=== PATIENT | female | born 1975 | race Caucasian/White ===

== ENCOUNTER 2024-11-28 11:48 | Inpatient (IN) | payer OTHER ==
[~2024-11-28] VITALS: Ht 154.9 cm; Wt 105.4 kg
[2024-11-28 12:09] VITALS: O2SAT 98
[2024-11-28 14:12] LABS: BASOPHILS % 0.9 % (0.0-2.0); EOSINOPHILS % 2.8 % (0.0-5.0); HEMATOCRIT. 40.1 % (36.0-48.0); HEMOGLOBIN. 13.7 g/dL (12.0-16.0); LYMPHOCYTES % 23.5 % (20.0-50.0); MEAN PLATELET VOLUME 8.2 fl (7.4-10.4); MONOCYTES % 8.2 % (2.0-8.0); NEUTROPHILS % 64.6 % (40.0-76.0); PLATELET 287 x1000/uL (130-400); RED BLOOD CELL COUNT 4.50 mill/uL (4.2-5.4); RED CELL DISTRIBUTION WIDTH 13.3 % (11.6-14.6)
[2024-11-28 14:27] LABS: CREATININE 0.5 mg/dL (0.6-1.0); UREA NITROGEN BLOOD 11 mg/dL (9-23)
[2024-11-28 14:28] LABS: HCG SCREEN NEGATIVE; TROPONIN I HIGH SENSITIVITY < 4 ng/L (3.0-34)
[2024-11-28] MEDS: KCL 20MEQ/100ML PREMIX 100 ML IV ONE (15:11)
[2024-11-28] MEDS: MAGNESIUM 2 G PREMIX 50 ML IV ONE (15:11)
[2024-11-28] MEDS: POTASSIUM CHLORIDE 20MEQ/PACKET PO ONE (15:12)
[2024-11-28 16:50] LABS: TROPONIN I HIGH SENSITIVITY < 4 ng/L (3.0-34)
[2024-11-28] MEDS ORDERED: MAGNESIUM/ALUMINUM HYDROXIDE/SIMETHICONE 30ML UDC PO PRN (18:00)
[2024-11-28] MEDS ORDERED: ONDANSETRON HCL 4MG/2ML INJ IV PRN (18:00)
[2024-11-28] MEDS ORDERED: CLONIDINE 0.1MG TABLET PO PRN (18:00)
[2024-11-28] MEDS ORDERED: GUAIFENESIN 200MG/10ML SUGAR FREE UDC PO PRN (18:00)
[2024-11-28] MEDS ORDERED: ACETAMINOPHEN 325MG TABLET PO PRN ×2 (18:00)
[2024-11-28] MEDS ORDERED: DOCUSATE SODIUM 100MG CAPSULE PO PRN (18:00)
[2024-11-28] MEDS ORDERED: KETOROLAC 15MG/ML VIAL IV PRN (18:15)
[2024-11-28] MEDS ORDERED: LANS15CA17 PO (18:19)
[2024-11-28] MEDS ORDERED: CELE-116 PO (18:19)
[2024-11-28] MEDS ORDERED: NAPR-681 PO (18:19)
[2024-11-28] MEDS ORDERED: POTA-354 PO (18:19)
[2024-11-28 19:06] LABS: CLARITY URINE CLEAR (CLEAR); COLOR URINE YELLOW (YELLOW); GLUCOSE URINE NEGATIVE (NEGATIVE); KETONES URINE NEGATIVE (NEGATIVE); LEUKOCYTE ESTERASE URINE NEGATIVE (NEGATIVE); NITRITE URINE NEGATIVE (NEGATIVE); OCCULT BLOOD URINE NEGATIVE (NEGATIVE); PH URINE 6.5 (4.5-8.0); PROTEIN URINE NEGATIVE (NEGATIVE); SPECIFIC GRAVITY URINE 1.015 (1.005-1.030); UROBILINOGEN URINE 0.2 E.U./dL (0.2-1.0)
[2024-11-28 19:13] LABS: *AMPHETAMINES SCREEN URINE NEGATIVE (NEGATIVE)
[2024-11-28 19:14] LABS: *BARBITURATES SCREEN URINE NEGATIVE (NEGATIVE); *BENZODIAZEPINES SCREEN URINE NEGATIVE (NEGATIVE); *COCAINE SCREEN URINE NEGATIVE (NEGATIVE); CANNABINOID URINE SCREEN NEGATIVE (NEGATIVE); ECSTASY MDMA SCREEN URINE NEGATIVE (NEGATIVE); METHADONE URINE SCREEN NEGATIVE (NEGATIVE); OPIATES URINE SCREEN NEGATIVE (NEGATIVE); PHENCYCLIDINE URINE SCREEN NEGATIVE (NEGATIVE)
[2024-11-28 19:37] VITALS: BP 155/86; PULSE 64; RESP 20; TEMP 36.7516
[2024-11-28 20:00] VITALS: BP 153/87; PULSE 70; RESP 18; TEMP 36.6; O2SAT 98
[2024-11-28] MEDS: PANTOPRAZOLE 40MG DR TABLET PO SCH (20:27)
[2024-11-28 21:50] LABS: CREATININE 0.6 mg/dL (0.6-1.0); UREA NITROGEN BLOOD 11 mg/dL (9-23)
[2024-11-28 21:52] LABS: PHOSPHORUS 3.5 mg/dL (2.5-4.9)
[2024-11-28 22:53] LABS: TROPONIN I HIGH SENSITIVITY < 4 ng/L (3.0-34)
[2024-11-29] VITALS: BP 118/58; PULSE 74; RESP 19; TEMP 36.7; O2SAT 98
[2024-11-29 04:00] VITALS: BP 106/61; PULSE 71; RESP 22; TEMP 36.6; O2SAT 98
[2024-11-29 07:26] LABS: BASOPHILS % 0.7 % (0.0-2.0); EOSINOPHILS % 3.5 % (0.0-5.0); HEMATOCRIT. 37.9 % (36.0-48.0); HEMOGLOBIN. 13.1 g/dL (12.0-16.0); LYMPHOCYTES % 23.9 % (20.0-50.0); MEAN PLATELET VOLUME 8.2 fl (7.4-10.4); MONOCYTES % 7.6 % (2.0-8.0); NEUTROPHILS % 64.3 % (40.0-76.0); PLATELET 268 x1000/uL (130-400); RED BLOOD CELL COUNT 4.24 mill/uL (4.2-5.4); RED CELL DISTRIBUTION WIDTH 13.3 % (11.6-14.6)
[2024-11-29 07:59] LABS: TROPONIN I HIGH SENSITIVITY < 4 ng/L (3.0-34)
[2024-11-29 08:00] VITALS: BP 116/61; PULSE 86; RESP 17; TEMP 36.5; O2SAT 95
[2024-11-29 08:00] LABS: TRIGLYCERIDE 130.0 mg/dL (0-150)
[2024-11-29 08:01] LABS: LDL CHOLESTEROL 124.0 mg/dL (5-100)
[2024-11-29 08:04] LABS: T4 FREE 1.12 ng/dL (0.89-1.76)
[2024-11-29] MEDS: ENOXAPARIN 30MG/0.3ML SYR SUBCUT SCH (08:19)
[2024-11-29] MEDS ORDERED: IBUP-2030 MT (11:33)
[2024-11-29 12:00] VITALS: BP 139/97; PULSE 76; RESP 20; TEMP 36.4; O2SAT 98
[2024-11-29 14:25] VITALS: BP 139/97; PULSE 76; RESP 20; TEMP 97.6
== END 2024-11-29 15:26 | disposition home or self-care (01) | DRG 556 ==
LOC: ER 11:48 → 3WST 14:35 → EDBEDREQ 14:37 → EDBEDREQTM 14:37 → ENRESERV 16:01
PROVIDERS: ADMIT Hospitalist; ATTEND Hospitalist
DX: M79.661 Pain in right lower leg (principal); E78.00 Pure hypercholesterolemia, unspecified; Z96.659 Presence of unspecified artificial knee joint; R07.89 Other chest pain; Z98.890 Other specified postprocedural states
CPT/HCPCS: 36415; 71045; 80048; 80061; 80305; 81003; 83735; 84100; 84439; 84443; 84484; 84703; 85025; 85379; 93005; 93971; 97165; 99291; A4606; J1650; J3475; J3480